=== PATIENT | female | born 1945 | race Caucasian/White ===

== ENCOUNTER → 2017-03-29 | Outpatient (CLI) | payer MEDICARE ==
--- NOTE | 2017-03-29 12:09 | WWHP ---
[facility] - HISTORY AND PHYSICAL DATE OF DICTATION: 03/29/2017. CHIEF COMPLAINT: The patient is here for her routine gynecologic exam and mammogram. HPI: This is a 71-year-old, G5, P4-0-1-4 with an LMP of 1997. The patient is without gynecologic complaints and denies any postmenopausal bleeding. PAST MEDICAL HISTORY: COPD and emphysema, gastroesophageal reflux disease, and elevated cholesterol. MEDICATIONS: None. ALLERGIES: No known drug allergies. PAST SURGICAL AND [employer] HISTORIES: Unchanged from the 02/18/2015 H&P. FAMILY HISTORY: Brother had an AK and has Alzheimer's. Mother in an accident. SOCIAL HISTORY: She denies tobacco and drug use and has about 2 alcohol-containing drinks per month. She is a and is not seeing anybody at this time. She does have a condominium in [place] that she goes to some [place]. She does not work outside the home. REVIEW OF SYSTEMS: She has lost 3 pounds over the last year. She denies respiratory, cardiac or GI problems. She denies maltreatment or falling. : She has occasional urinary leakage if she coughs hard. PHYSICAL EXAM: Blood pressure 114/74, height 5 feet 4 inches, weight 155 pounds, BMI 26, temperature 97.4, pulse 83. This is a well-developed, well-nourished, white female, who is alert and oriented x3, in no acute distress. HEENT is within normal limits. NECK: Supple without mass or thyromegaly. CHEST AND LUNGS: Clear to auscultation. HEART: Regular rate and rhythm. Breasts are without mass or discharge. Axillary exam is negative for adenopathy. BACK: Negative for CVA tenderness. ABDOMEN: Soft, nontender, without palpable masses. PELVIC EXAM: External genitalia reveals mild atrophy without lesions. Cervix and vagina reveals mild to moderate atrophy without lesions. There is no evidence of prolapse. There is no evidence of a cystocele. There is mild urethral mobility with cough and Valsalva, but no urinary leakage was demonstrated. The cervix appears stenotic upon doing the Pap smear and there are no lesions. The uterus is mid position, nongravid size and nontender. There are no palpable adnexal masses or tenderness. Rectovaginal exam is negative for mass or tenderness and is negative for occult blood. EXTREMITIES: Nontender. IMPRESSION: A 71-year-old menopausal female with normal gynecologic exam. PLAN: 1. Pap smear was performed. 2. Self breast examination was discussed. 3. Mammogram will be done today. 4. Osteoporosis prevention was discussed. I have recommended that she redo her bone density test in 1 to 2 years since she had a normal one in 2013. 5. She will return in 1 year. MMODL / IJN: [id number] /
--- NOTE | 2017-03-30 14:01 | MM ---
Reason for exam: screening (asymptomatic). Last mammogram was performed 3 years and 4 months ago. History: Patient is postmenopausal. Core biopsy. Physical Findings: A clinical breast exam by your physician is recommended on an annual basis and results should be correlated with mammographic findings. MG Screening Mammo w CAD Bilateral CC and MLO view(s) were taken. Prior study comparison: November 23, 2013, bilateral MG screening mammo w CAD. June 06, 2012, bilateral digital screening mammo w/CAD. The breast tissue is heterogeneously dense. This may lower the sensitivity of mammography. No suspicious abnormality. ASSESSMENT: Negative, BI-RAD 1 RECOMMENDATION: Routine screening mammogram of both breasts in 1 year.
== END | disposition home or self-care (01) ==
LOC: WWCWWP 09:49
PROVIDERS: ATTEND Obstetrics & Gynecology
DX: Z12.31 Encounter for screening mammogram for malignant neoplasm of breast (principal)
CPT/HCPCS: 77067

== ENCOUNTER → 2019-04-09 | Outpatient (CLI) | payer MEDICARE ==
--- NOTE | 2019-04-09 12:22 | CT ---
EXAMINATION TYPE: CT abdomen pelvis wo con DATE OF EXAM: 04/09/2019 HISTORY: Right sided pain with pelvic pressure and increased frequency of urination. CT DLP: 429.4 mGycm. Automated Exposure Control for Dose Reduction was Utilized. TECHNIQUE: CT scan of the abdomen and pelvis is performed without oral or IV contrast. COMPARISON: CT abdomen January 03, 2015 and older CTs FINDINGS: Within the limitations of a non-contrast study, the following observations are made. LUNG BASES: Patchy bibasilar linear scarring and/or atelectasis. LIVER/GB: There is 2.5 cm hypodense lesion left hepatic lobe anteriorly on image 36 diminished in siz e from prior study favoring thin-walled cyst. There is 1.8 cm thin-walled lesion anterior to liver ax ial image 42 is increased in size from prior study image 24. Cholecystectomy clips are redemonstrated . PANCREAS: No significant abnormality is seen. SPLEEN: No significant abnormality is seen. ADRENALS: No significant abnormality is seen. KIDNEYS: No renal calculi or hydronephrosis is seen on noncontrast study. BOWEL: Surgical changes epigastric region now present presumed from interval Angela fundoplication corona rgery. Suboptimal evaluation of bowel without enteric contrast. No suspicious small enlarged bowel di latation. Low-lying cecum into the anterior right pelvis. Some diverticula in the sigmoid colon. GENITAL ORGANS: Anteverted uterus. Ovaries are normal in size LYMPH NODES: No greater than 1cm abdominal or pelvic lymph nodes are appreciated. OSSEOUS STRUCTURES: Some facet arthropathy lower lumbar spine. Multilevel spurring of the thoracic sp ine. Mild narrowing both hip joints. OTHER: Few surgical clips in the left paracolic gutter current study axial image 83 for reference. Ad ditional displaced clip anterior right midabdomen axial image 68. IMPRESSION: No renal stones or hydronephrosis is seen bilaterally. Slightly larger thin-walled cystic lesion anterior to liver of uncertain etiology still favored benign. No suspicious acute findings on noncontrast CT noted.
== END | disposition home or self-care (01) ==
LOC: RADCTMAIN 11:35
PROVIDERS: ATTEND Family Medicine
DX: K76.9 Liver disease, unspecified (principal)
CPT/HCPCS: 74176